=== PATIENT | female | born 1930 | race American Indian/Alaskan Native ===

== ENCOUNTER 2017-06-15 14:55 | Emergency (ER) | payer MEDICARE ==
[2017-06-15 16:16] LABS: Basophils % (Auto) 0.2 % (0.0-1.8); Eosinophils % (Auto) 0.8 % (0.0-4.3); Hematocrit 37.5 % (30.3-42.9); Mean Corpuscular HGB Conc 32 % (30-34); Mean Corpuscular Hemoglobin 27 pg (28-32); Mean Corpuscular Volume 84 fl (79-97); Platelet Count 173 K/mm3 (140-440); Red Blood Count 4.46 M/mm3 (3.65-5.03); Red Cell Distribution Width 14.9 % (13.2-15.2); White Blood Count 5.6 K/mm3 (4.5-11.0)
[2017-06-15 16:27] LABS: Anion Gap 17 mmol/L; BUN/Creatinine Ratio 27; Blood Urea Nitrogen 32 mg/dL (7-17); Calcium 9.2 mg/dL (8.4-10.2); Carbon Dioxide 31 mmol/L (22-30); Chloride 96.5 mmol/L (98-107); Glucose 102 mg/dL (65-100); Potassium 3.8 mmol/L (3.6-5.0); Sodium 141 mmol/L (137-145)
[2017-06-15 18:13] VITALS: BP 115/62
[2017-06-15 19:25] LABS: Bilirubin,Urine NEG (Negative); Blood,Urine NEG (Negative); Ketones,Urine NEG (Negative); Leukocyte Esterase,Urine LG (Negative); Nitrite,Urine NEG (Negative); Protein,Urine <15 mg/dL mg/dL (Negative); Urobilinogen,Urine < 2.0 mg/dL (<2.0)
--- NOTE | 2017-06-15 20:46 | Emergency Department Report ---
- General Chief complaint: Weakness Stated complaint: HYPOTENSION Time Seen by Provider: 06/15/17 20:25 Source: patient, EMS Mode of arrival: Stretcher Limitations: Other - History of Present Illness Initial comments: Patient was at an adult day center when she was noted to feel weak. When EMS arrived she had a BP of 70/40. She received a total of 500 mL NS and her BP has been normal her whole stay here. MD Complaint: generalized weakness -: Gradual Location: generalized Severity: moderate Severity scale (0 -10): 0 Consistency: now resolved Improves with: rest, medication (Fluids) Worsens with: none Associated Symptoms: denies other symptoms - Related Data Home Medications Medication Instructions Recorded Confirmed Last Taken Aspirin [Aspirin EC] 81 mg PO QDAY 06/15/17 06/15/17 Unknown Donepezil [Aricept] 10 mg PO QDAY 06/15/17 06/15/17 Unknown Losartan/Hydrochlorothiazide 1 tab PO QDAY 06/15/17 06/15/17 Unknown [Losartan-Hctz 50-12.5 mg Tab] Oxybutynin Chloride [Ditropan Xl] 10 mg PO QDAY 06/15/17 06/15/17 Unknown Sertraline [Zoloft] 100 mg PO QDAY 06/15/17 06/15/17 Unknown Previous Rx's Medication Instructions Recorded Last Taken Type Cephalexin [Keflex] 500 mg PO Q8HR 10 Days 06/15/17 Unknown Rx Allergies Allergy/AdvReac Type Severity Reaction Status Date / Time No Known Allergies Allergy Unverified 09/16/14 15:52 ED Review of Systems ROS: Stated complaint: HYPOTENSION Other details as noted in HPI Constitutional: denies: chills, fever Eyes: denies: eye pain, eye discharge, vision change ENT: denies: ear pain, throat pain Respiratory: denies: cough, shortness of breath, wheezing Cardiovascular: denies: chest pain, palpitations Endocrine: no symptoms reported Gastrointestinal: denies: abdominal pain, nausea, diarrhea Genitourinary: denies: urgency, dysuria, discharge Musculoskeletal: denies: back pain, joint swelling, arthralgia Skin: denies: rash, lesions Neurological: denies: headache, weakness, paresthesias Psychiatric: denies: anxiety, depression Hematological/Lymphatic: denies: easy bleeding, easy bruising ED Past Medical Hx - Past Medical History Previous Medical History?: Yes Hx Hypertension: Yes Hx CVA: No Hx Heart Attack/AMI: No Hx Congestive Heart Failure: No Hx Diabetes: Yes Hx Dementia: Yes Additional medical history: Hyperlipidemia - Surgical History Past Surgical History?: No - Social History Smoking Status: Never Smoker Substance Use Type: None - Medications Home Medications: Home Medications Medication Instructions Recorded Confirmed Last Taken Type Aspirin [Aspirin EC] 81 mg PO QDAY 06/15/17 06/15/17 Unknown History Cephalexin [Keflex] 500 mg PO Q8HR 10 Days 06/15/17 Unknown Rx Donepezil [Aricept] 10 mg PO QDAY 06/15/17 06/15/17 Unknown History Losartan/Hydrochlorothiazide 1 tab PO QDAY 06/15/17 06/15/17 Unknown History [Losartan-Hctz 50-12.5 mg Tab] Oxybutynin Chloride [Ditropan Xl] 10 mg PO QDAY 06/15/17 06/15/17 Unknown History Sertraline [Zoloft] 100 mg PO QDAY 06/15/17 06/15/17 Unknown History ED Physical Exam - General Limitations: Other General appearance: alert, in no apparent distress - Head Head exam: Present: atraumatic, normocephalic - Eye Eye exam: Present: normal appearance - ENT ENT exam: Present: mucous membranes moist - Neck Neck exam: Present: normal inspection - Respiratory Respiratory exam: Present: normal lung sounds bilaterally. Absent: respiratory distress - Cardiovascular Cardiovascular Exam: Present: regular rate, normal rhythm. Absent: systolic murmur, diastolic murmur, rubs, gallop - GI/Abdominal GI/Abdominal exam: Present: soft, normal bowel sounds - Extremities Exam Extremities exam: Present: normal inspection - Back Exam Back exam: Present: normal inspection - Neurological Exam Neurological exam: Present: alert, oriented X3 - Psychiatric Psychiatric exam: Present: normal affect, normal mood - Skin Skin exam: Present: warm, dry, intact, normal color. Absent: rash ED Course Vital Signs 06/15/17 06/15/17 06/15/17 15:01 15:03 15:14 Temperature 98.3 F Pulse Rate 93 H 52 L Respiratory 19 16 Rate Blood Pressure Blood Pressure 119/58 [Right] O2 Sat by Pulse 99 100 97 Oximetry 06/15/17 06/15/17 06/15/17 15:16 15:30 15:46 Temperature Pulse Rate 49 L 63 54 L Respiratory 13 15 17 Rate Blood Pressure 119/54 131/56 134/61 Blood Pressure [Right] O2 Sat by Pulse 100 99 100 Oximetry 06/15/17 06/15/17 06/15/17 16:00 16:16 16:30 Temperature Pulse Rate 55 L 58 L 63 Respiratory 17 17 16 Rate Blood Pressure 124/56 119/68 132/63 Blood Pressure [Right] O2 Sat by Pulse 75 L 100 98 Oximetry 06/15/17 06/15/17 06/15/17 16:45 17:00 17:15 Temperature Pulse Rate 63 66 70 Respiratory 15 13 16 Rate Blood Pressure 121/57 119/98 113/66 Blood Pressure [Right] O2 Sat by Pulse 100 99 99 Oximetry 06/15/17 06/15/17 06/15/17 17:30 17:46 18:00 Temperature Pulse Rate 62 69 60 Respiratory 16 15 13 Rate Blood Pressure 103/67 103/67 115/62 Blood Pressure [Right] O2 Sat by Pulse 99 97 100 Oximetry ED Medical Decision Making - Lab Data Result diagrams: 06/15/17 15:34 06/15/17 15:34 - EKG Data -: EKG Interpreted by [facility] EKG shows normal: sinus rhythm, ST-T waves (No ST changes. ) Rate: bradycardia - EKG Data Interpretation: no acute changes (Has atrial premature complex ) - Medical Decision Making Patient has done well since getting 500 mL of NS. Her labs represent dehydration with UTI. She does not appear to be sick or septic. Her blood pressure has been normal the whole time she has been here. D/W daughter encouraging hydration and antibiotics. Will do rocephin 1 gm IV and then do keflex outpatient. Critical care attestation.: If time is entered above; I have spent that time in minutes in the direct care of this critically ill patient, excluding procedure time. ED Disposition Clinical Impression: Dehydration UTI (urinary tract infection) Qualifiers: Urinary tract infection type: acute cystitis Hematuria presence: without hematuria Qualified Code(s): N30.00 - Acute cystitis without hematuria Disposition: DC- TO HOME OR SELFCARE Is pt being admited?: No Does the pt Need Aspirin: No Condition: Good Instructions: Dehydration (ED), Urinary Tract Infection in Women (ED) Prescriptions: Cephalexin [Keflex] 500 mg PO Q8HR 10 Days Referrals: PRIMARY CARE, [Primary Care Provider] - 3-5 Days Time of Disposition: 20:57 (after IV rocephin given may be discharged)
[2017-06-15] MEDS ORDERED: ROCEPHIN/NS 1 GM/50 ML 1 GM/50 ML BAG IV ONE (21:00)
== END 2017-06-15 21:52 | disposition home or self-care (01) ==
LOC: ED 14:55
DX: N30.00 Acute cystitis without hematuria (principal); E86.0 Dehydration; I10 Essential (primary) hypertension; E11.9 Type 2 diabetes mellitus without complications; E78.5 Hyperlipidemia, unspecified; F03.90 Unspecified dementia, unspecified severity, without behavioral disturbance, psychotic disturbance, mood disturbance, and anxiety
CPT/HCPCS: 36415; 80048; 81001; 84484; 85025; 93005; 93010; 96365; 99284; J0696

== ENCOUNTER 2017-06-27 14:38 | Emergency (ER) | payer MEDICARE ==
[2017-06-27 16:49] LABS: Basophils % (Auto) 0.6 % (0.0-1.8); Eosinophils % (Auto) 0.6 % (0.0-4.3); Hematocrit 36.3 % (30.3-42.9); Hemoglobin 11.7 gm/dl (10.1-14.3); Mean Corpuscular HGB Conc 32 % (30-34); Mean Corpuscular Hemoglobin 28 pg (28-32); Mean Corpuscular Volume 85 fl (79-97); Platelet Count 206 K/mm3 (140-440); Red Blood Count 4.25 M/mm3 (3.65-5.03); Red Cell Distribution Width 14.9 % (13.2-15.2); White Blood Count 6.8 K/mm3 (4.5-11.0)
[2017-06-27 17:08] LABS: Anion Gap 17 mmol/L; BUN/Creatinine Ratio 29; Blood Urea Nitrogen 26 mg/dL (7-17); Calcium 8.9 mg/dL (8.4-10.2); Carbon Dioxide 28 mmol/L (22-30); Chloride 98.8 mmol/L (98-107); Glucose 131 mg/dL (65-100); Potassium 3.6 mmol/L (3.6-5.0); Sodium 140 mmol/L (137-145)
[2017-06-27] MEDS ORDERED: NACL 0.9% 1000 ML 1,000 ML IV ONE (18:14)
--- NOTE | 2017-06-27 18:18 | Emergency Department Report ---
ED General Adult HPI - General Chief complaint: Weakness Stated complaint: LETHARGIC Source: patient, EMS Mode of arrival: Stretcher Limitations: Other - History of Present Illness Initial comments: Pt is an 86 yo female sent here for being less reactive than usual. pt does have a history of dementia. - Related Data Home Medications Medication Instructions Recorded Confirmed Last Taken Aspirin [Aspirin EC] 81 mg PO QDAY 06/15/17 06/27/17 Unknown Donepezil [Aricept] 10 mg PO QDAY 06/15/17 06/27/17 Unknown Losartan/Hydrochlorothiazide 1 tab PO QDAY 06/15/17 06/27/17 Unknown [Losartan-Hctz 50-12.5 mg Tab] Sertraline [Zoloft] 100 mg PO QDAY 06/15/17 06/27/17 Unknown Ergocalciferol(Vitamin D2)(Nf) 50,000 units PO QWEEK 06/27/17 06/27/17 Unknown [Vitamin D (Nf)] Memantine [Namenda] 10 mg PO DAILY 06/27/17 06/27/17 Unknown Previous Rx's Medication Instructions Recorded Last Taken Type Sulfamethoxazole/Trimethoprim 1 each PO BID 3 Days #6 tablet 06/27/17 Unknown Rx [Bactrim DS TAB] Allergies Allergy/AdvReac Type Severity Reaction Status Date / Time No Known Allergies Allergy Unverified 06/27/17 16:08 ED Review of Systems ROS: Stated complaint: LETHARGIC Other details as noted in HPI ED Past Medical Hx - Past Medical History Previous Medical History?: Yes Hx Hypertension: Yes Hx CVA: Yes Hx Heart Attack/AMI: No Hx Congestive Heart Failure: No Hx Diabetes: Yes Hx Dementia: Yes Additional medical history: Glaucoma. Alzheimers - Social History Smoking Status: Former Smoker Substance Use Type: None - Medications Home Medications: Home Medications Medication Instructions Recorded Confirmed Last Taken Type Aspirin [Aspirin EC] 81 mg PO QDAY 06/15/17 06/27/17 Unknown History Donepezil [Aricept] 10 mg PO QDAY 06/15/17 06/27/17 Unknown History Losartan/Hydrochlorothiazide 1 tab PO QDAY 06/15/17 06/27/17 Unknown History [Losartan-Hctz 50-12.5 mg Tab] Sertraline [Zoloft] 100 mg PO QDAY 06/15/17 06/27/17 Unknown History Ergocalciferol(Vitamin D2)(Nf) 50,000 units PO QWEEK 06/27/17 06/27/17 Unknown History [Vitamin D (Nf)] Memantine [Namenda] 10 mg PO DAILY 06/27/17 06/27/17 Unknown History Sulfamethoxazole/Trimethoprim 1 each PO BID 3 Days #6 tablet 06/27/17 Unknown Rx [Bactrim DS TAB] ED Physical Exam - General Limitations: Other General appearance: alert, in no apparent distress - Head Head exam: Present: atraumatic, other (mild right facial droop) - ENT ENT exam: Present: mucous membranes dry - Respiratory Respiratory exam: Present: normal lung sounds bilaterally - Cardiovascular Cardiovascular Exam: Present: regular rate - GI/Abdominal GI/Abdominal exam: Present: soft. Absent: distended - Extremities Exam Extremities exam: Present: normal inspection - Skin Skin exam: Present: warm, dry ED Course Vital Signs 06/27/17 06/27/17 06/27/17 15:59 16:54 18:36 Temperature 98.4 F Pulse Rate 63 73 Respiratory 16 16 16 Rate Blood Pressure 119/49 Blood Pressure 118/61 [Right] O2 Sat by Pulse 100 100 100 Oximetry ED Medical Decision Making - Lab Data Result diagrams: 06/27/17 16:35 06/27/17 16:35 Critical care attestation.: If time is entered above; I have spent that time in minutes in the direct care of this critically ill patient, excluding procedure time. ED Disposition Clinical Impression: UTI (urinary tract infection), Dehydration Disposition: - TO HOME OR SELFCARE Is pt being admited?: No Does the pt Need Aspirin: No Condition: Stable Instructions: Urinary Tract Infection in Women (ED), Dehydration (ED) Additional Instructions: Return sooner if worse or if further concerns; Be sure to follow up with your primary care doctor or the referral doctor given here increase the fluid intake in your diet; take the antibiotics until complete Prescriptions: Sulfamethoxazole/Trimethoprim [Bactrim DS TAB] 1 each PO BID 3 Days #6 tablet Referrals: GLORIA YS NP-C, CNM [Primary Care Provider] - 3-5 Days Time of Disposition: 22:20
[2017-06-27 20:36] LABS: Bilirubin,Urine NEG (Negative); Blood,Urine NEG (Negative); Ketones,Urine NEG (Negative); Leukocyte Esterase,Urine TR (Negative); Mucus,Urine FEW /HPF; Nitrite,Urine NEG (Negative); Protein,Urine <15 mg/dL mg/dL (Negative); Urobilinogen,Urine < 2.0 mg/dL (<2.0)
[2017-06-27 23:01] VITALS: BP 133/54
== END 2017-06-27 23:05 | disposition home or self-care (01) ==
LOC: ED 14:38
DX: N39.0 Urinary tract infection, site not specified (principal); E86.0 Dehydration; Z86.73 Personal history of transient ischemic attack (TIA), and cerebral infarction without residual deficits; I10 Essential (primary) hypertension; E11.9 Type 2 diabetes mellitus without complications; Z87.891 Personal history of nicotine dependence; G30.9 Alzheimer's disease, unspecified; F02.80 Dementia in other diseases classified elsewhere, unspecified severity, without behavioral disturbance, psychotic disturbance, mood disturbance, and anxiety; Z79.82 Long term (current) use of aspirin
CPT/HCPCS: 36415; 80048; 81001; 82962; 85025; 87086; 93005; 93010; 96360; 96361; 99284; J7030

== ENCOUNTER 2017-10-03 16:11 | Emergency (ER) | payer MEDICARE ==
[2017-10-03 17:05] LABS: Basophils % (Auto) 0.5 % (0.0-1.8); Eosinophils % (Auto) 0.7 % (0.0-4.3); Hematocrit 34.8 % (30.3-42.9); Hemoglobin 11.2 gm/dl (10.1-14.3); Lymphocytes # (Auto) 1.2 K/mm3 (1.2-5.4); Lymphocytes % (Auto) 19.3 % (13.4-35.0); Mean Corpuscular HGB Conc 32 % (30-34); Mean Corpuscular Hemoglobin 27 pg (28-32); Mean Corpuscular Volume 84 fl (79-97); Monocytes # (Auto) 0.3 K/mm3 (0.0-0.8); Monocytes % (Auto) 4.9 % (0.0-7.3); Platelet Count 293 K/mm3 (140-440); Red Blood Count 4.14 M/mm3 (3.65-5.03); Red Cell Distribution Width 14.1 % (13.2-15.2)
[2017-10-03 17:15] LABS: INR 1.21 (0.87-1.13)
[2017-10-03 17:31] LABS: Alanine Aminotransferase 14 units/L (7-56); Albumin 3.6 g/dL (3.9-5); BUN/Creatinine Ratio 29; Blood Urea Nitrogen 23 mg/dL (7-17); Calcium 8.8 mg/dL (8.4-10.2); Hemolysis Index 5
--- NOTE | 2017-10-03 18:04 | Emergency Department Report ---
ED General Adult HPI - General Chief complaint: Extremity Injury, Lower Stated complaint: BILATERAL ANKLE SWELLING Time Seen by Provider: 10/03/17 17:18 Source: patient, family Mode of arrival: Ambulatory Limitations: Physical Limitation - History of Present Illness Initial comments: Family report that she fell about a month ago, and has been having discoloration and swelling in the both feet, which began about two weeks ago. in the past she has had swelling to the ankles, but this seems to be more so recently. She does not take a fluid pill per her daughter. Denies other complaints. Lives with her daughter. She is able to walk back and forth with a walker to the toilet, with assistance, daughter reports the patient is sleeping more than usual. She was due for cataract surgery, daughter states her eyes have been draining for two months. She has not seen her eye doctor yet for this. Daughter reports that the patient was taken off her HTN medications in July. Location: lower extremity (both ankles) Radiation: non-radiation Consistency: constant Improves with: none Worsens with: none Associated Symptoms: confusion - Related Data Home Medications Medication Instructions Recorded Confirmed Last Taken Aspirin [Aspirin EC] 81 mg PO QDAY 06/15/17 06/27/17 Unknown Donepezil [Aricept] 10 mg PO QDAY 06/15/17 06/27/17 Unknown Losartan/Hydrochlorothiazide 1 tab PO QDAY 06/15/17 06/27/17 Unknown [Losartan-Hctz 50-12.5 mg Tab] Sertraline [Zoloft] 100 mg PO QDAY 06/15/17 06/27/17 Unknown Ergocalciferol(Vitamin D2)(Nf) 50,000 units PO QWEEK 06/27/17 06/27/17 Unknown [Vitamin D (Nf)] Memantine [Namenda] 10 mg PO DAILY 06/27/17 06/27/17 Unknown Previous Rx's Medication Instructions Recorded Last Taken Type Sulfamethoxazole/Trimethoprim 1 each PO BID 3 Days #6 tablet 06/27/17 Unknown Rx [Bactrim DS TAB] Hydrochlorothiazide 12.5 mg PO DAILY #30 tablet 10/03/17 Unknown Rx Allergies Allergy/AdvReac Type Severity Reaction Status Date / Time No Known Allergies Allergy Unverified 06/27/17 16:08 ED Review of Systems ROS: Stated complaint: BILATERAL ANKLE SWELLING Other details as noted in HPI Comment: Unobtainable due to pts medical conditions (dementia) ED Past Medical Hx - Past Medical History Hx Hypertension: Yes Hx CVA: Yes Hx Heart Attack/AMI: No Hx Congestive Heart Failure: No Hx Diabetes: Yes Hx Dementia: Yes Additional medical history: Glaucoma. Alzheimers - Social History Smoking Status: Never Smoker - Medications Home Medications: Home Medications Medication Instructions Recorded Confirmed Last Taken Type Aspirin [Aspirin EC] 81 mg PO QDAY 06/15/17 06/27/17 Unknown History Donepezil [Aricept] 10 mg PO QDAY 06/15/17 06/27/17 Unknown History Losartan/Hydrochlorothiazide 1 tab PO QDAY 06/15/17 06/27/17 Unknown History [Losartan-Hctz 50-12.5 mg Tab] Sertraline [Zoloft] 100 mg PO QDAY 06/15/17 06/27/17 Unknown History Ergocalciferol(Vitamin D2)(Nf) 50,000 units PO QWEEK 06/27/17 06/27/17 Unknown History [Vitamin D (Nf)] Memantine [Namenda] 10 mg PO DAILY 06/27/17 06/27/17 Unknown History Sulfamethoxazole/Trimethoprim 1 each PO BID 3 Days #6 tablet 06/27/17 Unknown Rx [Bactrim DS TAB] Hydrochlorothiazide 12.5 mg PO DAILY #30 tablet 10/03/17 Unknown Rx ED Physical Exam - General Limitations: Physical Limitation General appearance: alert, in no apparent distress - Head Head exam: Present: atraumatic - Eye Eye exam: Present: normal appearance - ENT ENT exam: Present: normal exam - Neck Neck exam: Present: normal inspection, full ROM - Respiratory Respiratory exam: Present: normal lung sounds bilaterally - Cardiovascular Cardiovascular Exam: Present: regular rate, normal rhythm, normal heart sounds - GI/Abdominal GI/Abdominal exam: Present: soft, normal bowel sounds - Extremities Exam Extremities exam: Present: pedal edema (Left > Right ankle swelling) - Back Exam Back exam: Present: normal inspection - Neurological Exam Neurological exam: Present: alert - Skin Skin exam: Present: warm, dry ED Course Vital Signs 10/03/17 10/03/17 10/03/17 16:17 17:17 18:00 Temperature 98.9 F Pulse Rate 71 75 73 Respiratory 14 18 16 Rate Blood Pressure 115/67 136/78 O2 Sat by Pulse 100 100 Oximetry 10/03/17 19:00 Temperature Pulse Rate 72 Respiratory 14 Rate Blood Pressure 130/86 O2 Sat by Pulse 100 Oximetry - Reevaluation(s) Reevaluation #1: 10/03/17 22:03 I reviewed the laboratory findings and x-rays with the patient and her family. It seems that the patient does have a history of dehydration. However the patient also seems to have developed bipedal edema. She was taken off of her hydrochlorothiazide and losartan. This occurred back in July 2017. The patient daughter who takes care of her that the patient will likely need to follow up with her primary care doctor and need compression stockings as well as keeping both lower extremities elevated when possible. I feel that the patient can tolerate hydrochlorothiazide 12.5 mg by mouth daily and this may help with some of the lower extremity edema that the patient has. She was on this medication the past and did not have any swelling in her lower extremities. Patient is also to follow up with her primary care physician. Daughter expresses understanding. ED Medical Decision Making - Lab Data Result diagrams: 10/03/17 16:36 10/03/17 16:36 Critical care attestation.: If time is entered above; I have spent that time in minutes in the direct care of this critically ill patient, excluding procedure time. ED Disposition Clinical Impression: Edema extremities Disposition: DC-01 TO HOME OR SELFCARE Is pt being admited?: No Does the pt Need Aspirin: No Condition: Good Instructions: Leg Edema (ED) Additional Instructions: Rest, fluids as tolerated, take medications as prescribed, return as needed, follow up with your primary care doctor of choice, call 911 if you feel you are having a life threatening emergency. Prescriptions: Hydrochlorothiazide 12.5 mg PO DAILY #30 tablet Referrals: PRIMARY CARE, [Primary Care Provider] - 3-5 Days
--- NOTE | 2017-10-03 18:52 | XRay Report ---
FINAL REPORT PROCEDURE: Chest. TECHNIQUE: Portable AP view. HISTORY: Edema. COMPARISON: No prior studies are available for comparison. FINDINGS: The heart size is normal. There is mild tortuosity of the thoracic aorta. The lungs are clear and well expanded. There are no pleural effusions. 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 IMPRESSION: No evidence of acute disease.
--- NOTE | 2017-10-03 19:54 | XRay Report ---
FINAL REPORT PROCEDURE: Right and left ankles. TECHNIQUE: Two views of each ankle. HISTORY: Swelling, ankle pain. COMPARISON: No prior studies are available for comparison. FINDINGS: Right ankle: The bones appear intact without fracture or dislocation. The joint spaces appear satisfactory. The soft tissues are unremarkable. Left ankle: The bones appear intact without fracture or dislocation. The joint spaces appear satisfactory. There is soft tissue swelling overlying the lateral malleolus. IMPRESSION: No significant abnormality in the right ankle. Lateral soft tissue swelling in the left ankle.
[2017-10-04 00:05] VITALS: BP 151/85
== END 2017-10-03 23:00 | disposition home or self-care (01) ==
LOC: ED 16:11
DX: R60.0 Localized edema (principal); I10 Essential (primary) hypertension; E11.9 Type 2 diabetes mellitus without complications; E86.0 Dehydration; Z79.82 Long term (current) use of aspirin; Z88.2 Allergy status to sulfonamides
CPT/HCPCS: 36415; 71045; 80053; 82140; 83880; 85025; 85610; 87040; 99283